=== PATIENT | male | born 2000 | race Two or more races ===

== ENCOUNTER 2018-05-29 20:05 | Emergency (ER) | payer OTHER ==
--- NOTE | 2018-05-29 20:14 | EDPHY ---
H & P Source: Patient Exam Limitations: No limitations - Medical/Surgical History Hx Asthma: No Hx Chronic Respiratory Disease: No Hx Diabetes: No Hx Cardiac Disease: No Hx Renal Disease: No Hx Cirrhosis: No Hx Alcoholism: No - Family History Significant Family History: No pertinent family hx - Social History Smoking Status: Never smoked Alcohol Use: None Time Seen by Provider: 05/29/18 20:07 HPI/ROS: CHIEF COMPLAINT: Ft laceration, intoxication HISTORY OF PRESENT ILLNESS: The patient is a 17-year-old man who was having a [place] in [place] He is intoxicated. He stepped on a piece of glass in a [place]. He he denies other injuries. REVIEW OF SYSTEMS: Constitutional: denies: chills, fever, recent illness, recent injury EENTM: denies: blurred vision, double vision, nose congestion Respiratory: denies: cough, shortness of breath Cardiac: denies: chest pain, irregular heart rate, lightheadedness, palpitations Gastrointestinal/Abdominal: denies: abdominal pain, diarrhea, nausea, vomiting, blood streaked stools Genitourinary: denies: dysuria, frequency, hematuria, pain Musculoskeletal: denies: joint pain, muscle pain Skin: See HPI Neurological: denies: headache, numbness, paresthesia, tingling, dizziness, weakness Hematologic/Lymphatic: denies: blood clots, easy bleeding, easy bruising Immunologic/allergic: denies: HIV/AIDS, transplant EXAM: GENERAL: Well-appearing, well-nourished and in no acute distress. HEAD: Atraumatic, normocephalic. EYES: Pupils equal round and reactive to light, extraocular movements intact, sclera anicteric, conjunctiva are normal. ENT: TMs normal, nares patent, oropharynx clear without exudates. Moist mucous membranes. NECK: Normal range of motion, supple without lymphadenopathy or JVD. LUNGS: Breath sounds clear to auscultation bilaterally and equal. No wheezes rales or rhonchi. HEART: Regular rate and rhythm without murmurs, rubs or gallops. ABDOMEN: Soft, nontender, normoactive bowel sounds. No guarding, no rebound. No masses appreciated. BACK: No CVA tenderness, no spinal tenderness, step-offs or deformities EXTREMITIES: Normal range of motion, no pitting or edema. No clubbing or cyanosis. NEUROLOGICAL: Cranial nerves II through XII grossly intact. Normal speech, normal gait. 5/5 strength, normal movement in all extremities, normal sensation PSYCH: Normal mood, normal affect. SKIN: laceration lateral aspect of right foot, bleeding controlled (Lalo Dean) Constitutional: Initial Vital Signs Temperature (C) 36.8 C 05/29/18 20:11 Heart Rate 62 05/29/18 20:11 Respiratory Rate 16 05/29/18 20:11 Blood Pressure 103/65 05/29/18 20:11 O2 Sat (%) 97 05/29/18 20:11 O2 Delivery Mode Room Air Allergies/Adverse Reactions: No Known Allergies Allergy (Unverified 05/29/18 20:13) Home Medications: Medication Instructions Recorded NK [No Known Home Meds] 05/29/18 Medical Decision Making - Diagnostics Imaging: I viewed and interpreted images myself (Negative for foreign body) Procedures: I was asked by Dr. Lalo Dean to repair laceration to the right foot. Laceration repair. Verbal consent was obtained from the patient. The 3 cm laceration on the plantar aspect right lateral foot was anesthetized using 1% lidocaine with epinephrine. The wound was irrigated with saline, draped and explored to its base with a gloved finger. There were no deep structures involved. No tendon injury was identified. The wound was repaired with 4 0 Ethilon, 5 sutures. The wound repair was simple. The procedure was performed by myself. (Caitlin Guillaume) ED Course/Re-evaluation: 9:15 p.m. Patient tolerated suture repair. We will continue to await sobriety. No foreign body seen on x-ray. 10:45 p.m. The patient is sleeping. He is arousable but not yet ambulatory. We will continue to observe for sobriety. Care transferred to Dr. Sutton at shift change. (Lalo Dean) The patient was eventually able to walk with a steady gait. He was discharged from the emergency department. (Blanca Sutton) Differential Diagnosis: Partial list of the Differential diagnosis considered include but were not limited to; intoxication, laceration, foreign body and although unlikely based on the history and physical exam, I also considered nerve injury, vascular injury, head injury. (Lalo Dean) - Data Points Medications Given: Discontinued Medications Diphtheria/Tetanus/Acell Pertussis (Boostrix) 0.5 ml IM .ONCE ONE Stop: 05/29/18 20:16 Last Admin: 05/29/18 20:28 Dose: 0.5 ml Departure - Departure Disposition: Home, Routine, Self-Care Clinical Impression: Laceration, Alcoholic intoxication Condition: Fair Instructions: Laceration (ED), Alcohol Intoxication (ED) Additional Instructions: Wound Care Follow-Up: Removal of sutures in 10 days. Suture removal is complimentary in uncomplicated cases. Infection or abnormal findings would require reevaluation by the MD. In that case, you may be billed. Referrals: Patient,NotPresent [Unknown] - As per Instructions
[2018-05-29] MEDS ORDERED: TDAP ADULT 0.5 ML INJ (BOOSTRIX) IM ONE (20:15)
[2018-05-30 01:02] VITALS: BP 146/87
== END 2018-05-30 01:01 | disposition home or self-care (01) ==
PROC: 0HQMXZZ Repair Right Foot Skin, External Approach (ICD-10-PCS; principal; 2018-05-29)
DX: S91.311A Laceration without foreign body, right foot, initial encounter (principal); F10.129 Alcohol abuse with intoxication, unspecified; Z23 Encounter for immunization; W25.XXXA Contact with sharp glass, initial encounter; Y92.89 Other specified places as the place of occurrence of the external cause; Y99.8 Other external cause status; Y93.89 Activity, other specified